=== PATIENT | female | born 1945 | race Caucasian/White ===

== ENCOUNTER 2017-12-15 13:01 | Inpatient (IN) | payer MEDICARE, OTHER ==
[~2017-12-15 13:01] MED LIST: ISOVUE-370 76%-LOCM 1 ML ONE
[2017-12-15] MEDS ORDERED: Morphine 4 MG/ML VIAL ONE ×2 (13:30→14:41)
[2017-12-15 13:37] LABS: #Eosinphils 0.1 thou/uL (0.0-0.7); #Lymphocytes 2.3 thou/uL (1.20-3.40); #Monocytes 0.7 thou/uL (0.11-0.59); %Basophils 0.1 % (0.0-1.0); %Eosinophils 0.4 % (0.0-10.0); %Lymphocytes 15.1 % (21.0-51.0); %Monocytes 4.8 % (0.0-10.0); %Neutrophils 79.6 % (42.0-75.0); Hemoglobin 12.4 g/dL (12.0-16.0); Mean Corpuscular HGB CONC 33.6 g/dL (32.0-36.0); Mean Corpuscular Hemoglobin 28.4 pg (27.0-31.0); Mean Corpuscular Volume 84.5 fl (81.0-99.0); Mean Platelet Volume 7.1 fL (7.4-10.4); Platelet Count 241 thou/uL (130-400); Red Blood Cell (RBC) Count 4.37 mill/uL (4.20-5.40); White Blood Cell (WBC) Count 15.1 thou/uL (4.8-10.8)
[2017-12-15 13:55] LABS: ALT (SGPT) 32 U/L (8-55); AST (SGOT) 51 U/L (5-34); Albumin 4.3 g/dL (3.4-4.8); Alcohol Less than 10 mg/dL (Less than 10); Alkaline Phosphatase 111 U/L (40-150); Anion Gap 15 mmol/L (10-20); BUN (Urea Nitrogen) 14 mg/dL (9.8-20.1); Bilirubin, Total 0.5 mg/dL (0.2-1.2); Calc. Creatinine Clearance 0 mL/min (70-130); Calcium 9.6 mg/dL (7.8-10.44); Carbon Dioxide 25 mmol/L (23-31); Chloride 97 mmol/L (98-107); Estimated GFR-MDRD 75; Glucose 117 mg/dL (83-110); Lipase 27 U/L (8-78); Protein, Total 7.3 g/dL (6.0-8.3); Sodium 133 mmol/L (136-145)
[2017-12-15] MEDS ORDERED: hydrALAZINE 20 MG/ML VIAL SLOW IVP PRN (15:15)
[2017-12-15] MEDS ORDERED: Dextrose 5% in Water 1,000 ML IV PRN (15:15)
[2017-12-15] MEDS ORDERED: Ondansetron ODT 4 MG TAB PO PRN (15:15)
[2017-12-15] MEDS ORDERED: Rib Fracture Protocol PO SCH (15:15)
[2017-12-15] MEDS ORDERED: Sodium Chloride 0.9% 1,000 ML IV SCH (15:15)
[2017-12-15] MEDS ORDERED: Dextrose 50% Abboject 50 ML SYRINGE SLOW IVP PRN (15:15)
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
[2017-12-15 15:47] LABS: Magnesium 2.1 mg/dL (1.6-2.6); Phosphorus 3.1 mg/dL (2.3-4.7)
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
[2017-12-15 16:37] LABS: Bilirubin Negative (Negative); Blood, Urine Negative (Negative); Clarity CLEAR (Clear); Glucose, Urine (Dipstick) Negative (Negative); Leukocyte Negative (Negative); Nitrite Negative (Negative); Protein, Urine (Dipstick) Negative (Neg-Trace); pH, Urine 7.5 (5.0-9.0)
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
[2017-12-15 16:56] LABS: Specific Gravity, Urine 1.056 (1.002-1.036)
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
[2017-12-15] MEDS ORDERED: Cyclobenzaprine 10 MG TAB PO PRN (17:15)
[2017-12-15] MEDS: Acetaminophen 500 MG TAB PO SCH (17:58)
[2017-12-15] MEDS: traMADol HCl 50 MG TAB PO SCH (17:59)
[2017-12-15 19:32] VITALS: BMI 35.6
[2017-12-15 20:29] LABS: #Lymphocytes 0.4 thou/uL (1.20-3.40); #Monocytes 0.5 thou/uL (0.11-0.59); #Neutrophils 12.7 thou/uL (1.40-6.50); %Eosinophils 0.2 % (0.0-10.0); %Lymphocytes 2.8 % (21.0-51.0); %Monocytes 3.8 % (0.0-10.0); %Neutrophils 93.2 % (42.0-75.0); Hemoglobin 11.2 g/dL (12.0-16.0); Mean Corpuscular HGB CONC 33.2 g/dL (32.0-36.0); Mean Corpuscular Hemoglobin 28.5 pg (27.0-31.0); Mean Corpuscular Volume 85.7 fl (81.0-99.0); Mean Platelet Volume 7.2 fL (7.4-10.4); Platelet Count 192 thou/uL (130-400); Red Blood Cell (RBC) Count 3.93 mill/uL (4.20-5.40); White Blood Cell (WBC) Count 13.6 thou/uL (4.8-10.8)
[2017-12-15] MEDS: Famotidine 20 MG TAB PO SCH (20:59)
[2017-12-15] MEDS: Gabapentin 100 MG CAP PO SCH (20:59)
[2017-12-15] MEDS: Ibuprofen 600 MG TAB PO SCH (21:00)
[2017-12-16] MEDS: traMADol HCl 50 MG TAB PO SCH ×4 (00:56→17:36)
[2017-12-16] MEDS: Acetaminophen 500 MG TAB PO SCH ×4 (00:56→17:37)
[2017-12-16 05:49] LABS: #Lymphocytes 0.9 thou/uL (1.20-3.40); #Monocytes 0.7 thou/uL (0.11-0.59); #Neutrophils 6.6 thou/uL (1.40-6.50); %Basophils 0.1 % (0.0-1.0); %Eosinophils 0.3 % (0.0-10.0); %Monocytes 7.9 % (0.0-10.0); %Neutrophils 80.7 % (42.0-75.0); Hemoglobin 9.9 g/dL (12.0-16.0); Mean Corpuscular HGB CONC 32.8 g/dL (32.0-36.0); Mean Corpuscular Volume 85.4 fl (81.0-99.0); Mean Platelet Volume 7.1 fL (7.4-10.4); Platelet Count 160 thou/uL (130-400); RBC Distribution Width 12.9 % (11.5-14.5); Red Blood Cell (RBC) Count 3.53 mill/uL (4.20-5.40); White Blood Cell (WBC) Count 8.2 thou/uL (4.8-10.8)
[2017-12-16 06:14] LABS: Anion Gap 9 mmol/L (10-20); BUN (Urea Nitrogen) 11 mg/dL (9.8-20.1); Calc. Creatinine Clearance 120 mL/min (70-130); Calcium 8.5 mg/dL (7.8-10.44); Carbon Dioxide 27 mmol/L (23-31); Chloride 102 mmol/L (98-107); Estimated GFR-MDRD Greater than 90; Glucose 92 mg/dL (83-110); Potassium 3.8 mmol/L (3.5-5.1); Sodium 134 mmol/L (136-145)
[2017-12-16] MEDS: Ibuprofen 600 MG TAB PO SCH ×3 (06:23→22:39)
[2017-12-16] MEDS ORDERED: Potassium Chloride 20 MEQ TAB PO SCH ×2 (07:15)
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
[2017-12-16] MEDS: Famotidine 20 MG TAB PO SCH ×2 (08:48→20:36)
[2017-12-16] MEDS: Gabapentin 100 MG CAP PO SCH ×3 (08:48→20:37)
--- NOTE | 2017-12-16 09:28 | RAD ---
CHEST 1 VIEW: HISTORY: Evaluate for pneumothorax. COMPARISON: Radiograph of prior day. FINDINGS: Lungs are clear. No pneumothorax or effusion. Cardiac silhouette and mediastinal contours are withi n normal limits. Left first costochondral junction fracture not well seen. IMPRESSION: No acute intrathoracic abnormality. No pneumothorax. POS: [facility]
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
[2017-12-16] MEDS: Enoxaparin Sodium 40 MG/0.4 ML SYRINGE SC SCH (20:37)
[2017-12-17] MEDS: Acetaminophen 500 MG TAB PO SCH ×4 (06:02→17:49)
[2017-12-17] MEDS: traMADol HCl 50 MG TAB PO SCH ×4 (06:02→17:49)
[2017-12-17] MEDS: Ibuprofen 600 MG TAB PO SCH ×3 (06:02→21:39)
[2017-12-17] MEDS: Gabapentin 100 MG CAP PO SCH ×3 (07:33→21:39)
[2017-12-17] MEDS: Famotidine 20 MG TAB PO SCH ×2 (07:33→21:39)
[2017-12-17 08:22] LABS: Anion Gap 9 mmol/L (10-20); BUN (Urea Nitrogen) 14 mg/dL (9.8-20.1); Calc. Creatinine Clearance 120 mL/min (70-130); Calcium 8.5 mg/dL (7.8-10.44); Carbon Dioxide 28 mmol/L (23-31); Chloride 96 mmol/L (98-107); Estimated GFR-MDRD Greater than 90; Glucose 101 mg/dL (83-110); Phosphorus 2.5 mg/dL (2.3-4.7); Potassium 3.7 mmol/L (3.5-5.1); Sodium 129 mmol/L (136-145)
--- NOTE | 2017-12-17 11:14 | PRG ---
DATE OF SERVICE: 12/17/2017 SUBJECTIVE: Ms. Emery was able to get out of bed. She is sitting in a wheelchair. She has been n auseated this morning. She does understand that she needs to be nonweightbearing on the right ankle. She has no other complaints than what she came in with. PHYSICAL EXAMINATION: VITAL SIGNS: Patient has been afebrile, pulse 71, respiratory rate 20, blood pressure 130/73. MUSCULOSKELETAL: Splint on the right ankle is in good position. The patient is able to flex and ext end her toes well. Right foot is neurovascularly intact. PLAN: The patient will work with PT and OT to get out of bed. She understands and she needs to be n onweightbearing on the right foot and ankle.
[2017-12-17] MEDS ORDERED: Potassium Chloride 20 MEQ TAB PO SCH (16:15)
[2017-12-17] MEDS ORDERED: Scopolamine 1.5 mg/72 hour Patch TD SCH (17:15)
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
[2017-12-17] MEDS ORDERED: Simvastatin 5 MG TAB PO SCH (21:00)
[2017-12-17] MEDS: Enoxaparin Sodium 40 MG/0.4 ML SYRINGE SC SCH (21:40)
[2017-12-18] MEDS: traMADol HCl 50 MG TAB PO SCH ×3 (02:41→12:19)
[2017-12-18] MEDS: Acetaminophen 500 MG TAB PO SCH ×3 (02:41→12:19)
[2017-12-18] MEDS: Ibuprofen 600 MG TAB PO SCH (06:54)
[2017-12-18 08:28] VITALS: BP 132/74; TEMP 98.2
[2017-12-18 08:41] LABS: Anion Gap 11 mmol/L (10-20); BUN (Urea Nitrogen) 13 mg/dL (9.8-20.1); Calc. Creatinine Clearance 120 mL/min (70-130); Calcium 9.1 mg/dL (7.8-10.44); Carbon Dioxide 25 mmol/L (23-31); Chloride 98 mmol/L (98-107); Estimated GFR-MDRD Greater than 90; Glucose 92 mg/dL (83-110); Magnesium 2.1 mg/dL (1.6-2.6); Phosphorus 2.8 mg/dL (2.3-4.7); Potassium 4.1 mmol/L (3.5-5.1); Sodium 130 mmol/L (136-145)
[2017-12-18] MEDS ORDERED: Multivitamin W/ Minerals 1 TAB PO SCH (09:00)
[2017-12-18] MEDS ORDERED: Lisinopril/Hydrochlorothiazide 10 mg/12.5 mg Tablet PO SCH (09:00)
[2017-12-18] MEDS ORDERED: Senokot S 8.6-50 MG TAB PO SCH (09:00)
[2017-12-18] MEDS ORDERED: Lisinopril 10 MG TAB PO SCH (09:00)
[2017-12-18] MEDS ORDERED: Polyethylene Glycol 3350 17 GM Packet PO SCH (09:00)
[2017-12-18] MEDS: Famotidine 20 MG TAB PO SCH (09:40)
[2017-12-18] MEDS: Gabapentin 100 MG CAP PO SCH (09:40)
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
== END 2017-12-18 12:25 | disposition swing bed (61) | DRG 206 ==
LOC: ERS 13:01 → SURG A 16:23
PROVIDERS: ADMIT Surgery; ATTEND Surgery
DX: S22.32XA Fracture of one rib, left side, initial encounter for closed fracture (principal); T79.7XXA Traumatic subcutaneous emphysema, initial encounter; S32.511A Fracture of superior rim of right pubis, initial encounter for closed fracture; E87.1 Hypo-osmolality and hyponatremia; S82.61XA Displaced fracture of lateral malleolus of right fibula, initial encounter for closed fracture; E78.5 Hyperlipidemia, unspecified; V49.49XA Driver injured in collision with other motor vehicles in traffic accident, initial encounter; I10 Essential (primary) hypertension; Z87.891 Personal history of nicotine dependence; E87.6 Hypokalemia
CPT/HCPCS: 27781; 36415; 51702; 70450; 71045; 71260; 72125; 72170; 74177; 80048; 80053; 80307; 81003; 83690; 83735; 83880; 84100; 85025; 86850; 86900; 86901; 93005; 94640; 96361; 96374; 96376; G0390; G8978-GP-CN; G8979-GP-CK; G8987-GO-CL; G8988-GO-CI; J1650; J2270; J7620; Q0162